=== PATIENT | female | born 1980 | race Caucasian/White ===

== ENCOUNTER 2016-06-15 11:08 | Outpatient (CLI) | payer MEDICAID ==
--- NOTE | 2016-06-16 11:12 | Mammography Report ---
BILATERAL DIGITAL SCREENING MAMMOGRAM with CAD: 06/15/16 11:08:00 CLINICAL: Baseline screening. FINDINGS: The breasts are heterogeneously dense, which may obscure small masses. An oval right upper outer circumscribed mass is probably a lymph node but needs additional imaging for confirmation.No architectural distortion or suspicious calcifications.The left breast is negative. IMPRESSION: Right lymph node versus mass requiring further workup. BI-RADS CATEGORY: 0 -- Additional Imaging Evaluation Required RECOMMENDATION: Recall for ultrasound of the upper outer right breast. ACR BI-RADS MAMMOGRAPHIC CODES: 0 = Needs additional imaging evaluation; 1 = Negative; 2 = Benign; 3 = Probably benign; 4 = Suspicious; 5 = Malignant; 6 = Known biopsy-proven malignancy COMMENT: 1. Dense breast tissue, i.e., adenosis, fibrocystic changes, etc., may obscure an underlying neoplasm. 2. Approximately 10% of cancers are not detected with mammography. 3. A negative mammography report should not delay biopsy if a clinically suspicious mass is present. COMMENT: Patient follow-up letters are generated via our [employer] application.
== END 2016-06-15 11:09 | disposition home or self-care (01) ==
LOC: SPVWC 11:08
PROVIDERS: ATTEND Hospitalist
DX: Z12.31 Encounter for screening mammogram for malignant neoplasm of breast (principal)
CPT/HCPCS: 77067; G0202

== ENCOUNTER 2016-06-30 12:58 | Outpatient (CLI) | payer MEDICAID ==
--- NOTE | 2016-06-30 13:44 | Ultrasound Report ---
RIGHT BREAST ULTRASOUND: 06/30/16 12:58:00 CLINICAL: Recall to evaluate an upper outer lymph node versus mass. COMPARISON: 06/15/16 screening mammogram. FINDINGS: Ultrasound of the upper outer right breast was performed and demonstrated a lymph node with central fat and benign morphology at 10:30 o'clock 7 cm from the nipple. It measures 6 x 7 x 5 mm and correlates with the mammographic density. No mass, cyst or shadowing. IMPRESSION: A 7 mm benign right upper outer intraparenchymal lymph node. BI-RADS 2 - - Benign RECOMMENDATION: Routine mammographic screening based on ACS guidelines.
== END 2016-06-30 12:59 | disposition home or self-care (01) ==
LOC: SPVWC 12:58
PROVIDERS: ATTEND Hospitalist
DX: R92.8 Other abnormal and inconclusive findings on diagnostic imaging of breast (principal)

== ENCOUNTER 2017-03-28 11:39 | Emergency (ER) | payer MEDICAID ==
--- NOTE | 2017-03-28 16:38 | Emergency Department Report ---
Blank Doc - Documentation Documentation: Patient is a 36-year-old female, sent by her primary care physician for evaluation for vaginal bleeding that started immediately after she took bland B 3 days ago. Patient stated that she has been passing clots. She denied any dizziness, chest pain and shortness of breath. No chest pain. She stated that she has lower abdominal pain since then. Patient will need further workup which includes CBC, CMP, hCG.
[2017-03-28 17:00] VITALS: BP 114/69
[2017-03-28 17:00] LABS: Basophils % (Auto) 0.7 % (0.0-1.8); Eosinophils # (Auto) 0.2 K/mm3 (0.0-0.4); Eosinophils % (Auto) 2.8 % (0.0-4.3); Hematocrit 39.9 % (30.3-42.9); Hemoglobin 13.5 gm/dl (10.1-14.3); Lymphocytes # (Auto) 1.8 K/mm3 (1.2-5.4); Lymphocytes % (Auto) 24.2 % (13.4-35.0); Mean Corpuscular HGB Conc 34 % (30-34); Mean Corpuscular Hemoglobin 30 pg (28-32); Mean Corpuscular Volume 89 fl (79-97); Monocytes # (Auto) 0.6 K/mm3 (0.0-0.8); Monocytes % (Auto) 7.9 % (0.0-7.3); Platelet Count 300 K/mm3 (140-440); Red Blood Count 4.47 M/mm3 (3.65-5.03)
[2017-03-28 17:05] LABS: Bacteria,Urine 1+ /HPF (Negative); Bilirubin,Urine NEG (Negative); Blood,Urine LG (Negative); Color,Urine Yellow (Yellow); Nitrite,Urine NEG (Negative); Protein,Urine <15 mg/dL mg/dL (Negative); Urobilinogen,Urine < 2.0 mg/dL (<2.0)
[2017-03-28 17:13] LABS: INR 0.95 (0.87-1.13); Partial Thromboplastin Time 25.2 Sec. (24.2-36.6)
[2017-03-28 17:20] LABS: Alanine Aminotransferase 19 units/L (7-56); Albumin 4.3 g/dL (3.9-5); BUN/Creatinine Ratio 14; Blood Urea Nitrogen 7 mg/dL (7-17); Calcium 8.7 mg/dL (8.4-10.2); Hemolysis Index 14
--- NOTE | 2017-03-28 17:47 | Emergency Department Report ---
ED Female HPI - General Chief complaint: Abdominal Pain Stated complaint: VAG BLEED Time Seen by Provider: 03/28/17 16:12 Source: patient Mode of arrival: Ambulatory Limitations: No Limitations - History of Present Illness Initial comments: 36-year-old female comes in being sent by her primary care for evaluation of vaginal bleeding that started immediately after she took plan B3 days ago. Patient reports that she's been passing lots of clots. She reports that she is going through 7 pads a day. She denies any dizziness shortness of breath chest pain. She does admit to lower abdominal pain since then. Patient has no other concerns. MD Complaint: vaginal bleeding Severity scale (0 -10): 7 Quality: burning Are you Now?: No Associated Symptoms: vaginal bleeding, other (pelvic pain) - Related Data Previous Rx's Medication Instructions Recorded Last Taken Type Acetaminophen/Codeine [Tylenol #3] 1 tab PO Q6H PRN #21 tab 03/21/15 Unknown Rx methOCARBAMOL [Robaxin TAB] 500 mg PO BID #20 tab 03/21/15 Unknown Rx Ibuprofen 800 mg PO TID #15 tablet 03/28/17 Unknown Rx Allergies Allergy/AdvReac Type Severity Reaction Status Date / Time No Known Allergies Allergy Unverified 03/28/17 12:00 ED Review of Systems ROS: Stated complaint: VAG BLEED Other details as noted in HPI Constitutional: denies: chills, fever Eyes: denies: eye pain, eye discharge, vision change ENT: denies: ear pain, throat pain Respiratory: denies: cough, shortness of breath, wheezing Cardiovascular: denies: chest pain, palpitations Endocrine: no symptoms reported Gastrointestinal: denies: abdominal pain, nausea, diarrhea Genitourinary: denies: urgency, dysuria, discharge Musculoskeletal: denies: back pain, joint swelling, arthralgia Skin: denies: rash, lesions Neurological: denies: headache, weakness, paresthesias Psychiatric: denies: anxiety, depression Hematological/Lymphatic: denies: easy bleeding, easy bruising ED Past Medical Hx - Past Medical History Previous Medical History?: Yes Hx Asthma: Yes - Surgical History Past Surgical History?: Yes Additional Surgical History: SINUS SURGERY. TUBES IN EARS. Tubal ligation - Social History Smoking Status: Never Smoker Substance Use Type: None - Medications Home Medications: Home Medications Medication Instructions Recorded Confirmed Last Taken Type Acetaminophen/Codeine [Tylenol #3] 1 tab PO Q6H PRN #21 tab 03/21/15 Unknown Rx methOCARBAMOL [Robaxin TAB] 500 mg PO BID #20 tab 03/21/15 Unknown Rx Ibuprofen 800 mg PO TID #15 tablet 03/28/17 Unknown Rx ED Physical Exam - General Limitations: No Limitations General appearance: alert, in no apparent distress - Head Head exam: Present: atraumatic, normocephalic - Eye Eye exam: Present: normal appearance - Respiratory Respiratory exam: Present: normal lung sounds bilaterally. Absent: respiratory distress - Cardiovascular Cardiovascular Exam: Present: regular rate, normal rhythm. Absent: systolic murmur, diastolic murmur, rubs, gallop - GI/Abdominal GI/Abdominal exam: Present: soft, tenderness - Extremities Exam Extremities exam: Present: normal inspection - Neurological Exam Neurological exam: Present: alert, oriented X3 - Psychiatric Psychiatric exam: Present: normal affect, normal mood - Skin Skin exam: Present: warm, dry, intact, normal color. Absent: rash ED Course Vital Signs 03/28/17 03/28/17 11:50 16:59 Temperature 98.3 F 97.6 F Pulse Rate 78 85 Respiratory 16 16 Rate Blood Pressure 112/84 Blood Pressure 114/69 [Left] O2 Sat by Pulse 100 100 Oximetry ED Medical Decision Making - Lab Data Result diagrams: 03/28/17 16:46 03/28/17 16:46 - Medical Decision Making Patient has been evaluated by this provider fast track. CBC CMP and hCG was within normal limits. Discussed with patient that we'll give her ibuprofen for pain and discharge her home on ibuprofen. She can follow up with primary care provider in the next 3-5 days. Patient verbalized understanding Critical care attestation.: If time is entered above; I have spent that time in minutes in the direct care of this critically ill patient, excluding procedure time. ED Disposition Clinical Impression: Vaginal bleeding Disposition: DC-01 TO HOME OR SELFCARE Is pt being admited?: No Does the pt Need Aspirin: No Condition: Stable Instructions: Abdominal Pain (ED) Additional Instructions: Ibuprofen as prescribed when necessary. Follow-up with her primary care provider in 3-5 days. Prescriptions: Ibuprofen 800 mg PO TID #15 tablet Referrals: PRIMARY CARE, [Primary Care Provider] - 3-5 Days Forms: Work/School Release Form(ED), Accompanied Note
== END 2017-03-28 18:06 | disposition home or self-care (01) ==
LOC: ED 11:39
DX: N93.8 Other specified abnormal uterine and vaginal bleeding (principal); J45.909 Unspecified asthma, uncomplicated
CPT/HCPCS: 36415; 80053; 81001; 84702; 85025; 85610; 85730; 99283

== ENCOUNTER 2017-04-28 07:15 | Outpatient (CLI) | payer MEDICAID ==
--- NOTE | 2017-04-28 08:44 | Fluoroscopy Report ---
HYSTEROSALPINGOGRAM: History: Tubal ligation reversal. 10 fluoroscopic images were captured. Informed consent was obtained. Standard sterile prep and drape was employed. The catheter tip was subsequently placed within the uterine lumen via cervix. The small balloon on the tip of the catheter was inflated. Retrograde injection opacifies normal appearing uterine lumen. The fallopian tubules could not be opacified throughout this examination and were not visualized. IMPRESSION: Normal endometrial cavity. The bilateral fallopian tubules are not identified consistent with occlusion.
--- NOTE | 2017-04-28 15:33 | Ultrasound Report ---
FINAL REPORT EXAM: US PELVIC COMPLETE HISTORY: PELVIC PAIN TECHNIQUE: Pelvic ultrasound. Transabdominal study read in conjunction with transvaginal exam performed concurrently. PRIORS: None. FINDINGS: The uterus measures 10.2 x 4.0 x 5.8 cm. There is no focal uterine mass seen. Endometrial thickness is up to 12 mm. Right ovary measures 2.2 x 1.6 x 2.8 cm. The left measures 2.1 x 1.4 x 2.9 cm. There is no abnormal adnexal mass seen. There is no pelvic free fluid. IMPRESSION: Mildly prominent endometrium measuring 12 mm thickness in the fundus. No other significant finding.
--- NOTE | 2017-04-28 15:34 | Ultrasound Report ---
FINAL REPORT EXAM: US TRANSVAGINAL HISTORY: PELVIC PAIN/TUBAL REVERSAL TECHNIQUE: Pelvic ultrasound. Transvaginal study read in conjunction with abdominal exam. PRIORS: None. FINDINGS: The uterus measures 10.2 x 4.0 x 5.8 cm. There is no focal uterine mass seen. Endometrial thickness is up to 12 mm. Right ovary measures 2.2 x 1.6 x 2.8 cm. The left measures 2.1 x 1.4 x 2.9 cm. There is no abnormal adnexal mass seen. There is blood flow to both ovaries. There is no pelvic free fluid. IMPRESSION: Mildly prominent endometrium measuring 12 mm thickness in the fundus. No other significant finding.
== END 2017-04-28 07:16 | disposition home or self-care (01) ==
LOC: FLUORO 07:15
PROVIDERS: ATTEND Obstetrics & Gynecology
DX: R10.2 Pelvic and perineal pain (principal); Z31.42 Aftercare following sterilization reversal
CPT/HCPCS: 58340; 74740; 76830; 76856; Q9967

== ENCOUNTER 2018-02-22 09:55 | Emergency (ER) | payer MEDICAID ==
[2018-02-22 10:03] VITALS: BP 118/62
[2018-02-22 10:26] LABS: Hematocrit 39.5 % (30.3-42.9); Hemoglobin 13.5 gm/dl (10.1-14.3); Mean Corpuscular HGB Conc 34 % (30-34); Mean Corpuscular Volume 92 fl (79-97); Platelet Count 301 K/mm3 (140-440); Red Blood Count 4.31 M/mm3 (3.65-5.03); Red Cell Distribution Width 13.9 % (13.2-15.2)
[2018-02-22 11:17] LABS: Basophils % (Auto) 0.4 % (0.0-1.8); Eosinophils # (Auto) 0.2 K/mm3 (0.0-0.4); Eosinophils % (Auto) 1.6 % (0.0-4.3); Hematocrit 39.7 % (30.3-42.9); Hemoglobin 13.6 gm/dl (10.1-14.3); Lymphocytes % (Auto) 20.3 % (13.4-35.0); Mean Corpuscular HGB Conc 34 % (30-34); Mean Corpuscular Volume 91 fl (79-97); Monocytes # (Auto) 0.7 K/mm3 (0.0-0.8); Monocytes % (Auto) 6.9 % (0.0-7.3); Platelet Count 331 K/mm3 (140-440); Red Blood Count 4.36 M/mm3 (3.65-5.03); Red Cell Distribution Width 13.8 % (13.2-15.2)
[2018-02-22 11:22] LABS: Bacteria,Urine 1+ /HPF (Negative); Bilirubin,Urine NEG (Negative); Blood,Urine LG (Negative); Color,Urine Yellow (Yellow); Mucus,Urine 1+ /HPF; Urobilinogen,Urine < 2.0 mg/dL (<2.0)
[2018-02-22 11:22] LABS: Alanine Aminotransferase 7 units/L (7-56); Albumin 4.2 g/dL (3.9-5); BUN/Creatinine Ratio 15; Blood Urea Nitrogen 6 mg/dL (7-17); Calcium 9.1 mg/dL (8.4-10.2); Hemolysis Index 14
[2018-02-22 11:23] LABS: Bilirubin,Direct < 0.2 mg/dL (0-0.2)
--- NOTE | 2018-02-22 12:28 | Emergency Department Report ---
ED General Adult HPI - General Chief complaint: Vaginal Bleeding Stated complaint: PREG 11WKS/BLEEDING Time Seen by Provider: 02/22/18 10:14 Source: patient Mode of arrival: Ambulatory Limitations: No Limitations - History of Present Illness Initial comments: Patient is a female who presents to emergency department with vaginal bleeding. Patient states she is approximately 11 weeks and yesterday began to have a significant amount of vaginal bleeding. Patient denies any abdominal pain or contractions. Patient denies trauma or strenuous activity. Patient states she's had some spotting during this but not lázaro bleeding. -: Sudden Radiation: non-radiation Severity scale (0 -10): 0 Consistency: constant Improves with: none Worsens with: none Associated Symptoms: denies other symptoms - Related Data Previous Rx's Medication Instructions Recorded Last Taken Type Cephalexin [Keflex] 500 mg PO QID #20 capsule 02/22/18 Unknown Rx Allergies Allergy/AdvReac Type Severity Reaction Status Date / Time No Known Allergies Allergy Verified 12/26/17 11:49 ED Review of Systems ROS: Stated complaint: PREG 11WKS/BLEEDING Other details as noted in HPI Comment: All other systems reviewed and negative Constitutional: denies: chills, fever Eyes: denies: eye pain, eye discharge, vision change ENT: denies: ear pain, throat pain Respiratory: denies: cough, shortness of breath, wheezing Cardiovascular: denies: chest pain, palpitations Endocrine: no symptoms reported Gastrointestinal: denies: abdominal pain, nausea, diarrhea Genitourinary: other (vaginal bleeding). denies: urgency, dysuria, discharge Musculoskeletal: denies: back pain, joint swelling, arthralgia Skin: denies: rash, lesions Neurological: denies: headache, weakness, paresthesias Psychiatric: denies: anxiety, depression Hematological/Lymphatic: denies: easy bleeding, easy bruising ED Past Medical Hx - Past Medical History Hx Hypertension: No Hx Asthma: Yes (SEASONAL - NO MEDS) Hx HIV: No - Surgical History Past Surgical History?: Yes Additional Surgical History: SINUS SURGERY. TUBES IN EARS. Tubal ligation - Social History Smoking Status: Never Smoker Substance Use Type: None - Medications Home Medications: Home Medications Medication Instructions Recorded Confirmed Last Taken Type Cephalexin [Keflex] 500 mg PO QID #20 capsule 02/22/18 Unknown Rx ED Physical Exam - General Limitations: No Limitations General appearance: alert, in no apparent distress - Head Head exam: Present: atraumatic, normocephalic - Eye Eye exam: Present: normal appearance, PERRL, EOMI - ENT ENT exam: Present: mucous membranes moist - Neck Neck exam: Present: normal inspection - Respiratory Respiratory exam: Present: normal lung sounds bilaterally. Absent: respiratory distress, wheezes, rales - Cardiovascular Cardiovascular Exam: Present: regular rate, normal rhythm. Absent: systolic mu rmur, diastolic murmur, rubs, gallop - GI/Abdominal GI/Abdominal exam: Present: soft, normal bowel sounds. Absent: distended, tenderness - Rectal Rectal exam: Present: deferred - External exam: Present: other (patient deferred) Speculum exam: Present: other (patient deferred) Bi-manual exam: Present: other (patient deferred) - Extremities Exam Extremities exam: Present: normal inspection - Back Exam Back exam: Present: normal inspection - Neurological Exam Neurological exam: Present: alert, oriented X3 - Psychiatric Psychiatric exam: Present: normal affect, normal mood - Skin Skin exam: Present: warm, dry, intact, normal color. Absent: rash ED Course Vital Signs 02/22/18 02/22/18 10:00 10:26 Temperature 98.1 F Pulse Rate 80 Respiratory 16 15 Rate Blood Pressure 118/62 O2 Sat by Pulse 100 Oximetry ED Medical Decision Making - Lab Data Result diagrams: 02/22/18 10:29 02/22/18 10:29 Lab Results 02/22/18 02/22/18 02/22/18 Range/Units 10:09 10:09 10:09 WBC 9.3 (4.5-11.0) K/mm3 RBC 4.31 (3.65-5.03) M/mm3 Hgb 13.5 (10.1-14.3) gm/dl Hct 39.5 (30.3-42.9) % MCV 92 (79-97) fl MCH 31 (28-32) pg MCHC 34 (30-34) % RDW 13.9 (13.2-15.2) % Plt Count 301 (140-440) K/mm3 Lymph % (Auto) (13.4-35.0) % [place] % (Auto) (0.0-7.3) % Eos % (Auto) (0.0-4.3) % Baso % (Auto) (0.0-1.8) % Lymph # (1.2-5.4) K/mm3 [place] # (0.0-0.8) K/mm3 Eos # (0.0-0.4) K/mm3 Baso # (0.0-0.1) K/mm3 Seg Neutrophils % (40.0-70.0) % Seg Neutrophils # (1.8-7.7) K/mm3 Sodium (137-145) mmol/L Potassium (3.6-5.0) mmol/L Chloride (98-107) mmol/L Carbon Dioxide (22-30) mmol/L Anion Gap mmol/L BUN (7-17) mg/dL Creatinine (0.7-1.2) mg/dL Estimated GFR ml/min BUN/Creatinine Ratio % Glucose (65-100) mg/dL Calcium (8.4-10.2) mg/dL Total Bilirubin (0.1-1.2) mg/dL Direct Bilirubin (0-0.2) mg/dL AST (5-40) units/L ALT (7-56) units/L Alkaline Phosphatase (35-129) units/L Total Protein (6.3-8.2) g/dL Albumin (3.9-5) g/dL Albumin/Globulin Ratio % HCG, Quant 11863 H (0-4) mIU/mL Urine Color (Yellow) Urine Turbidity (Clear) Urine pH (5.0-7.0) Ur Specific [place] (1.003-1.030) Urine Protein (Negative) mg/dL Urine Glucose (UA) (Negative) mg/dL Urine Ketones (Negative) mg/dL Urine Blood (Negative) Urine Nitrite (Negative) Urine Bilirubin (Negative) Urine Urobilinogen (<2.0) mg/dL Ur Leukocyte Esterase (Negative) Urine WBC (Auto) (0.0-6.0) /HPF Urine RBC (Auto) (0.0-6.0) /HPF U Epithel Cells (Auto) (0-13.0) /HPF Urine Bacteria (Auto) (Negative) /HPF Urine Mucus /HPF Blood Type O POSITIVE 02/22/18 02/22/18 02/22/18 Range/Units 10:29 10:29 10:56 WBC 9.9 (4.5-11.0) K/mm3 RBC 4.36 (3.65-5.03) M/mm3 Hgb 13.6 (10.1-14.3) gm/dl Hct 39.7 (30.3-42.9) % MCV 91 (79-97) fl MCH 31 (28-32) pg MCHC 34 (30-34) % RDW 13.8 (13.2-15.2) % Plt Count 331 (140-440) K/mm3 Lymph % (Auto) 20.3 (13.4-35.0) % [place] % (Auto) 6.9 (0.0-7.3) % Eos % (Auto) 1.6 (0.0-4.3) % Baso % (Auto) 0.4 (0.0-1.8) % Lymph # 2.0 (1.2-5.4) K/mm3 [place] # 0.7 (0.0-0.8) K/mm3 Eos # 0.2 (0.0-0.4) K/mm3 Baso # 0.0 (0.0-0.1) K/mm3 Seg Neutrophils % 70.8 H (40.0-70.0) % Seg Neutrophils # 7.0 (1.8-7.7) K/mm3 Sodium 137 (137-145) mmol/L Potassium 4.3 (3.6-5.0) mmol/L Chloride 100.3 (98-107) mmol/L Carbon Dioxide 24 (22-30) mmol/L Anion Gap 17 mmol/L BUN 6 L (7-17) mg/dL Creatinine 0.4 L (0.7-1.2) mg/dL Estimated GFR > 60 ml/min BUN/Creatinine Ratio 15 % Glucose 80 (65-100) mg/dL Calcium 9.1 (8.4-10.2) mg/dL Total Bilirubin 0.30 (0.1-1.2) mg/dL Direct Bilirubin < 0.2 (0-0.2) mg/dL AST 11 (5-40) units/L ALT 7 (7-56) units/L Alkaline Phosphatase 54 (35-129) units/L Total Protein 6.4 (6.3-8.2) g/dL Albumin 4.2 (3.9-5) g/dL Albumin/Globulin Ratio 1.9 % HCG, Quant (0-4) mIU/mL Urine Color Yellow (Yellow) Urine Turbidity Slightly-cloudy (Clear) Urine pH 6.0 (5.0-7.0) Ur Specific [place] 1.018 (1.003-1.030) Urine Protein 30 mg/dl (Negative) mg/dL Urine Glucose (UA) Neg (Negative) mg/dL Urine Ketones Neg (Negative) mg/dL Urine Blood Lg (Negative) Urine Nitrite Pos (Negative) Urine Bilirubin Neg (Negative) Urine Urobilinogen < 2.0 (<2.0) mg/dL Ur Leukocyte Esterase Sm (Negative) Urine WBC (Auto) 50.0 H (0.0-6.0) /HPF Urine RBC (Auto) 173.0 (0.0-6.0) /HPF U Epithel Cells (Auto) 13.0 (0-13.0) /HPF Urine Bacteria (Auto) 1+ (Negative) /HPF Urine Mucus 1+ /HPF Blood Type - Radiology Data Referring Physician: BRI WHITE Patient Name: ALAINA RAMIRES Date of : 1980 Sex: Female Report Date: 2018-02-22 Report Status: [place] [address] Ultrasound Report Signed Patient: ALAINA TRAN MR#: [id number] : 1980 Acct:[id number] Age/Sex: 37 / F ADM Date: 02/22/18 Loc: ED Attending Dr: Ordering Physician: BRI WHITE MD Date of Service: 02/22/18 Procedure(s): US OB <= 14 weeks fetus Accession Number(s): [id number] cc: BRI WHITE MD FINAL REPORT EXAM: US OB lt; = 14 WEEKS FETUS HISTORY: vaginal bleeding TECHNIQUE: Grayscale and color doppler ultrasound imaging of the pelvis was performed transabdominally and transvaginally. PRIORS: Pelvic ultrasound from 04/28/2017. FINDINGS: Uterus: The uterus is homogeneous in echogenicity without focal mass. The uterus measures 12.5 x 8.7 x 9.7 centimeters. An intrauterine gestational sac, yolk sac and embryonic pole were seen. There is a moderate subchorionic hemorrhage measuring 3.0 x 2.8 x 0.7 centimeters. Embryonic cardiac activity was detected at 165 beats per minute. [place]-rump length is 5.6 centimeters. Femur length is 0.9 centimeters. BPD is 1.8 centimeters. Combined estimated gestational age is 12 weeks and 4 days with an VARGAS of 09/02/2018. Ovaries: The ovaries were not seen. Free fluid: None. IMPRESSION: Live intrauterine measuring at 12 weeks and 4 days gestational age with an VARGAS of 09/02/2018. Moderate subchorionic hemorrhage. Transcribed By: MG Dictated By: YOHAN MONTESINOS MD Electronically Authenticated By: YOHAN MONTESINOS MD Signed Date/Time: 02/22/18 1340 DD/ 1343 TD/TT: 02/22/18 1343 - Medical Decision Making Discussed results with patient and the need to continue with her pre-existing appointment with Dr. Escobar in the morning Critical care attestation.: If time is entered above; I have spent that time in minutes in the direct care of this critically ill patient, excluding procedure time. ED Disposition Clinical Impression: Subchorionic hemorrhage, Threatened miscarriage, UTI (urinary tract infection) Disposition: - TO HOME OR SELFCARE Is pt being admited?: No Does the pt Need Aspirin: No Condition: Stable Instructions: Threatened Miscarriage (ED), (ED), Urinary Tract Infection in Women (ED) Additional Instructions: Please keep your appointment with Dr. Escobar in the a.m. Prescriptions: Cephalexin [Keflex] 500 mg PO QID #20 capsule Referrals: PRIMARY CARE, [Primary Care Provider] - 3-5 Days [facility] [Provider Group] - 3-5 Days Time of Disposition: 13:47
--- NOTE | 2018-02-22 13:40 | Ultrasound Report ---
FINAL REPORT EXAM: US OB <= 14 WEEKS FETUS HISTORY: vaginal bleeding TECHNIQUE: Grayscale and color doppler ultrasound imaging of the pelvis was performed transabdomina lly and transvaginally. PRIORS: Pelvic ultrasound from 04/28/2017. FINDINGS: Uterus: The uterus is homogeneous in echogenicity without focal mass. The uterus measures 12.5 x 8.7 x 9.7 centimeters. An intrauterine gestational sac, yolk sac and embryonic pole were seen. There is a moderate subchorionic hemorrhage measuring 3.0 x 2.8 x 0.7 centimeters. Embryonic cardiac activity w as detected at 165 beats per minute. [place]-rump length is 5.6 centimeters. Femur length is 0.9 centim eters. BPD is 1.8 centimeters. Combined estimated gestational age is 12 weeks and 4 days with an VARGAS of 09/02/2018. Ovaries: The ovaries were not seen. Free fluid: None. IMPRESSION: Live intrauterine measuring at 12 weeks and 4 days gestational age with an VARGAS of 9. Moderate subchorionic hemorrhage.
--- NOTE | 2018-02-22 13:41 | Ultrasound Report ---
FINAL REPORT EXAM: US OB TRANSVAGINAL HISTORY: vaginal bleeding TECHNIQUE: Grayscale and color doppler ultrasound imaging of the pelvis was performed transabdominal ly and transvaginally. PRIORS: Pelvic ultrasound from 04/28/2017. FINDINGS: Uterus: The uterus is homogeneous in echogenicity without focal mass. The uterus measures 12.5 x 8.7 x 9.7 centimeters. An intrauterine gestational sac, yolk sac and embryonic pole were seen. There is a moderate subchorionic hemorrhage measuring 3.0 x 2.8 x 0.7 centimeters. Embryonic cardiac activity w as detected at 165 beats per minute. [place]-rump length is 5.6 centimeters. Femur length is 0.9 centim eters. BPD is 1.8 centimeters. Combined estimated gestational age is 12 weeks and 4 days with an VARGAS of 09/02/2018. Ovaries: The ovaries were not seen. Free fluid: None. IMPRESSION: Live intrauterine measuring at 12 weeks and 4 days gestational age with an VARGAS of 9. Moderate subchorionic hemorrhage.
== END 2018-02-22 14:00 | disposition home or self-care (01) ==
LOC: ED 09:55
DX: O20.0 Threatened abortion (principal); O23.41 Unspecified infection of urinary tract in pregnancy, first trimester; O20.8 Other hemorrhage in early pregnancy; J45.909 Unspecified asthma, uncomplicated; Z3A.11 11 weeks gestation of pregnancy; Z98.51 Tubal ligation status
CPT/HCPCS: 36415; 76801; 76817; 80048; 80076; 81001; 84702; 85025; 85027; 86900; 86901; 99284

== ENCOUNTER 2018-07-07 09:54 | Outpatient (CLI) | payer MEDICAID ==
[2018-07-07] MEDS ORDERED: CELESTONE SOLUSPAN IM SCH (11:00)
== END 2018-07-07 11:05 | disposition home or self-care (01) ==
LOC: TRG 09:54
PROVIDERS: ATTEND Obstetrics & Gynecology
DX: O47.03 False labor before 37 completed weeks of gestation, third trimester (principal); O09.523 Supervision of elderly multigravida, third trimester; Z3A.31 31 weeks gestation of pregnancy
CPT/HCPCS: 96372; J0702

== ENCOUNTER 2018-07-08 09:50 | Outpatient (CLI) | payer MEDICAID ==
[2018-07-08] MEDS ORDERED: CELESTONE SOLUSPAN IM STA (09:54)
== END 2018-07-08 10:08 | disposition home or self-care (01) ==
LOC: TRG 09:50
PROVIDERS: ATTEND Obstetrics & Gynecology
DX: O47.03 False labor before 37 completed weeks of gestation, third trimester (principal); O09.523 Supervision of elderly multigravida, third trimester; Z3A.31 31 weeks gestation of pregnancy
CPT/HCPCS: 96372; J0702

== ENCOUNTER 2018-09-03 03:30 | Outpatient (CLI) | payer MEDICAID ==
[2018-09-03 03:40] VITALS: BP 124/81
[2018-09-03] MEDS ORDERED: LACTATED RINGERS 1,000 ML ONE (04:13)
[2018-09-03] MEDS ORDERED: LACTATED RINGERS 1,000 ML IV ONE (04:16)
[2018-09-03] MEDS ORDERED: VISTARIL PO ONE (05:37)
== END 2018-09-03 05:50 | disposition home or self-care (01) ==
LOC: TRG 03:30
PROVIDERS: ATTEND Obstetrics & Gynecology
DX: O62.9 Abnormality of forces of labor, unspecified (principal); O99.513 Diseases of the respiratory system complicating pregnancy, third trimester; J45.909 Unspecified asthma, uncomplicated; Z3A.39 39 weeks gestation of pregnancy
CPT/HCPCS: 59025; 96360; J7120; Q0177

== ENCOUNTER 2018-09-04 20:29 | Inpatient (IN) | payer MEDICAID ==
[2018-09-04] MEDS ORDERED: XYLOCAINE 2% INFILTRATI ONE (21:55)
[2018-09-04] MEDS ORDERED: SUBLIMAZE IV PRN (21:55)
[2018-09-04] MEDS ORDERED: BRETHINE SUB-Q PRN (21:55)
[2018-09-04] MEDS ORDERED: MINERAL OIL PO PRN (21:55)
[2018-09-04] MEDS ORDERED: BRETHINE IVP PRN (21:55)
[2018-09-04] MEDS ORDERED: PITOCin/NS 20 UNIT/1000ML DRIP 20 UNITS/1,000 ML BAG IV SCH (22:00)
[2018-09-04] MEDS ORDERED: PITOCin/NS 30 UNIT/500ML 30 UNITS/500 ML BAG IV SCH ×2 (22:00)
[2018-09-04] MEDS ORDERED: AMPICILLIN/NS 2 GM/100 ML 2 GM/100 ML BAG IV ONE (22:26)
[2018-09-05 00:26] LABS: Hematocrit 32.6 % (30.3-42.9); Hemoglobin 11.2 gm/dl (10.1-14.3); Mean Corpuscular HGB Conc 34 % (30-34); Mean Corpuscular Volume 93 fl (79-97); Platelet Count 312 K/mm3 (140-440); Red Blood Count 3.51 M/mm3 (3.65-5.03)
[2018-09-05] MEDS: STADOL IV PRN ×2 (01:18→09:58)
[2018-09-05] MEDS: LACTATED RINGERS 1,000 ML IV SCH ×4 (01:18→17:35)
[2018-09-05] MEDS ORDERED: AMPICILLIN/NS 1 GM/50 ML 1 GM/50 ML BAG IV SCH (02:30)
--- NOTE | 2018-09-05 08:38 | History and Physical Report ---
History of Present Illness Date of examination: 09/05/18 Date of admission: 09/04/18 23:15 Chief complaint: contractions, scheduled for induction History of present illness: Pt is a 38 year old female VARGAS 09/08/18 at 39w4d presents with regular painful contractions. She also reports some leakage of fluid since 2300 PM on 09/04/18. She reports good movement. She has had care at [facility] since 7 wks complicated by advanced maternal age, LGA fetus, after tubal reversal, polyhydramnios with AQUILES 30, H/o LEEP, s/p betamethasone 07/07 and 07/08, asthma, pyelectasis and UTI s/p treatment with Keflex. She is GBS Negative. 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 (Essure, tubal reversal, LEEP ), ot her (Ear surgery ) BUTTER FAT TESTER History: abnormal PAP smear Family/Genetic History: cancer Social history: no significant social history, - Obstetrical History Expected Date of Delivery: 09/08/18 Actual Gestation: 39 Week(s) 4 Day(s) : 5 Para: 4 Hx # Term Pregnancies: 4 Number of Pregnancies: 0 Spontaneous Abortions: 0 Induced : 0 Number of Living Children: 4 Medications and Allergies Allergies Allergy/AdvReac Type Severity Reaction Status Date / Time No Known Allergies Allergy Verified 12/26/17 11:49 Home Medications Medication Instructions Recorded Confirmed Last Taken Type Cephalexin [Keflex] 500 mg PO QID #20 capsule 02/22/18 Unknown Rx Active Meds: Active Medications Butorphanol Tartrate (Stadol) 2 mg IV Q2H PRN PRN Reason: Pain , Severe (7-10) Last Admin: 09/05/18 01:18 Dose: 2 mg Documented by: Ephedrine Sulfate (Ephedrine Sulfate) 10 mg IV Q2M PRN PRN Reason: Hypotension Fentanyl (Sublimaze) 100 mcg IV Q2H PRN PRN Reason: Labor Pain Oxytocin/Sodium Chloride (Pitocin/Ns 20 Unit/1000ml Drip) 20 units in 1,000 mls @ 125 mls/hr IV DIRECT ARTHUR Oxytocin/Sodium Chloride (Pitocin/Ns 30 Unit/500ml) 30 units in 500 mls @ 1 mls/hr IV TITR ARTHUR; Protocol Last Titration: 09/05/18 02:00 Dose: 4 milliunits/min, 4 mls/hr Documented by: Oxytocin/Sodium Chloride (Pitocin/Ns 30 Unit/500ml) 30 units in 500 mls @ 1 ml s/hr IV TITR ARTHUR; Protocol Lactated Ringer's (Lactated Ringers) 1,000 mls @ 125 mls/hr IV DIRECT ARTHUR Last Admin: 09/05/18 01:18 Dose: 125 mls/hr Documented by: Ampicillin Sodium (Ampicillin/Ns 1 Gm/50 Ml) 1 gm in 50 mls @ 100 mls/hr IV Q4HR ARTHUR Last Admin: 09/05/18 06:04 Dose: 100 mls/hr Documented by: Mineral Oil (Mineral Oil) 30 ml PO QHS PRN PRN Reason: Constipation Ondansetron HCl (Zofran) 4 mg IV Q8H PRN PRN Reason: Nausea And Vomiting Terbutaline Sulfate (Brethine) 0.25 mg SUB-Q ONCE PRN PRN Reason: Hyperstimulation/Hypertonicity Terbutaline Sulfate (Brethine) 0.25 mg IVP ONCE PRN PRN Reason: Hyperstimulation/Hypertonicity Review of Systems All systems: negative - Vital Signs Vital signs: Vital Signs Pulse BP 113 H 124/88 09/04/18 20:35 09/04/18 20:35 Temp Pulse Resp BP Pulse Ox 77 18 131/79 99 09/05/18 08:17 09/05/18 01:18 09/05/18 08:17 09/05/18 08:04 - Physical Exam Breasts: Positive: deferred Cardiovascular: Regular rate Lungs: Positive: Clear to auscultation Abdomen: Positive: soft (gravid ) Genitourinary (Female): Positive: normal external genitalia Uterus: Positive: enlarged (gravid ) Extremities: Positive: normal - Obstetrical FHR: auscultation normal Cervical Dilatation: 1 Cervical Effacement Percentage: 100 station: -4 Uterine Contraction Pattern: Irregular Uterine Tone Measurement Phase: Resting Uterine Contraction Intensity: Strong/Firm Results Result Diagrams: 09/04/18 23:21 Abnormal lab results 09/04/18 Range/Units 23:21 RBC 3.51 L (3.65-5.03) M/mm3 RDW 22.0 H (13.2-15.2) % All other labs normal. Assessment and Plan A: IUP at 39w4d PROM Polyhydramnios Advanced Maternal Age Asthma Obesity Pyelectasis GBS Negative P: Admit to labor and delivery Continue pitocin augmentation Closely monitor clinical status
[2018-09-05] MEDS ORDERED: ZOFRAN IV PRN ×2 (09:00→22:05)
--- NOTE | 2018-09-05 13:15 | Ultrasound Report ---
US OB limited INDICATION / CLINICAL INFORMATION: Presentation, labor. COMPARISON: None available. FINDINGS: Clinical dates are 39 weeks 4 days. There is a single intrauterine in a cephalic presentati on. The heart rate is 115 bpm. Signer Name: Wallace Flores MD Signed: 09/05/2018 1:11 PM Workstation Name: [id number]
--- NOTE | 2018-09-05 13:48 | Event Note ---
Date: 09/05/18 AROM- meconium stained fluid. Cat II tracing. Continue current management.
[2018-09-05] MEDS ORDERED: MARCAINE 0.25% INFILTRATI ONE ×2 (14:48→20:28)
[2018-09-05] MEDS ORDERED: NARCAN 2 MG/2 ML IV PRN (15:16)
--- NOTE | 2018-09-05 15:16 | Anesthesia Consultation ---
Anesthesia Consult and Med Hx Date of service: 09/05/18 - Airway Anesthetic Teeth Evaluation: Good ROM Head & Neck: Adequate Mental/Hyoid Distance: Adequate Mallampati Class: Class II Intubation Access Assessment: Good - Pulmonary Exam CTA: Yes - Cardiac Exam Cardiac Exam: RRR - Pre-Operative Health Status ASA Pre-Surgery Classification: ASA2, Emergency Proposed Anesthetic Plan: Epidural - Pulmonary Hx Smoking: No Hx Asthma: Yes COPD: No Hx Pneumonia: No Hx Sleep Apnea: No (JOANNA PRE SCREEN NEGATIVE) - Cardiovascular System Hx Hypertension: No - Central Nervous System Hx Seizures: No Hx Psychiatric Problems: No - Endocrine Hx Renal Disease: No Hx End Stage Renal Disease: No Hx Hypothyroidism: No Hx Hyperthyroidism: No - Hematic Hx Anemia: No Hx Sickle Cell Disease: No - Other Systems Hx Alcohol Use: No Hx Cancer: No
[2018-09-05] MEDS ORDERED: fentaNYL-BUPIV 2 MCG/ML-0.125% 200 MCG/100 ML BAG EPIDURAL SCH (16:00)
[2018-09-05] MEDS ORDERED: NACL 0.9% 500 ML 500 ML ONE ×2 (18:19→19:32)
--- NOTE | 2018-09-05 18:42 | Event Note ---
Date: 09/05/18 Pt more comfortable with epidural. Category II tracing. SVE: 6.5/90/-3. IUPC and FSE placed. Amnioinfusion started. FHTs with repetitive variable decels to 70s with each contraction initially. If no improvement, plan to proceed with delivery.
--- NOTE | 2018-09-05 20:13 | Event Note ---
Date: 09/05/18 Pt comfortable. Category I tracing. Cervix remains 6.5 cm. Restart pitocin. If cervix remains unchanged, or there is distress plan to proceed with primary section.
--- NOTE | 2018-09-05 21:10 | Anesthesia Day of Surgery ---
Anesthesia Day of Surgery - Day of Surgery Patient Examined: Yes Patient H&P Reviewed: Yes Patient is NPO: Yes
[2018-09-05] MEDS ORDERED: BICITRA PO ONE (21:14)
[2018-09-05] MEDS ORDERED: PEPCID IV ONE (21:14)
[2018-09-05] MEDS ORDERED: MARCAINE 0.5% INFILTRATI ONE (21:14)
[2018-09-05] MEDS ORDERED: REGLAN IV ONE (21:14)
[2018-09-05] MEDS ORDERED: PHENYLEPHRINE/NS Syringe 1,000 MCG/10 ML IV ONE (21:44)
[2018-09-05] MEDS ORDERED: ZOFRAN ONE (21:49)
[2018-09-05] MEDS ORDERED: WATER FOR IRRIG STERILE IR ONE (21:58)
[2018-09-05] MEDS ORDERED: NACL 0.9% IR ONE (21:58)
[2018-09-05] MEDS ORDERED: DIPRIVAN 10 MG/ML IV ONE (21:59)
[2018-09-05] MEDS ORDERED: LACTATED RINGERS 1,000 ML IV SCH (22:00)
[2018-09-05] MEDS ORDERED: PITOCin/NS 20 UNIT/1000ML DRIP 20 UNITS/1,000 ML BAG IV SCH (22:00)
[2018-09-05] MEDS ORDERED: ANCEF/STERILE WATER 2 GM/20 ML 2 GM/20 ML SYRINGE IV NR (22:00)
[2018-09-05] MEDS ORDERED: MORPHINE IV PRN (22:05)
[2018-09-05] MEDS ORDERED: DILAUDID IV PRN ×2 (22:05)
[2018-09-05] MEDS ORDERED: PHENERGAN PR PRN (22:05)
[2018-09-05] MEDS ORDERED: NARCAN 0.4 MG/1 ML IV PRN (22:05)
[2018-09-05] MEDS ORDERED: PHENERGAN PO PRN (22:05)
[2018-09-05] MEDS ORDERED: KETALAR ONE (22:16)
[2018-09-05] MEDS ORDERED: VERSED ONE (22:23)
[2018-09-05] MEDS ORDERED: METHERGINE IM ONE ×2 (22:24)
[2018-09-05] MEDS ORDERED: TORADOL ONE (22:52)
[2018-09-05] MEDS ORDERED: DILAUDID ONE (22:52)
[2018-09-05] MEDS ORDERED: SODIUM CHLORIDE FLUSH SYRINGE 10 ML IV PRN (23:00)
--- NOTE | 2018-09-05 23:30 | Procedure Note ---
OB Delivery Note - Delivery Date of Delivery: 09/05/18 Surgeon: CEZAR ON Estimated blood loss: 1000cc - Section Preop diagnosis: arrest of dilation Postop diagnosis: same section procedure: section, primary low transverse Disposition: PACU Complications: uterine atony - A at 1 minute: 7 at 5 minutes: 8 Gender: Male (4019g (8 lb 13.7 oz) @ 2220 pm)
--- NOTE | 2018-09-05 23:31 | Operative Report ---
Operative Report Operative Report: Date of procedure: September 05, 2018 Preoperative diagnosis: 1) IUP at 39w4d 2) Arrest of Dilation 3) Obesity 4) A dvanced Maternal Age 5) Polyhydramnios Postoperative diagnosis: Same 6) Uterine Atony Procedure: Primary low transverse section Surgeon: Nicole Vogt M.D. Anesthesia: Regional Findings: 1) Viable male , Apgars 7 and 8, weight 4019g, (8 lb 13.7 oz) in cephalic presentation 2) Normal-appearing uterus ovaries and tubes 3) Copious amount of amniotic fluid Estimated blood loss: 1000 mL IV fluids:1500 mL Urine output: 200 mL, clear at the end of the procedure Drains: Gray to gravity Specimens: Placenta to pathology Complications: None. Counts correct x 3 Medications: Methergine 0.2 mg IM Disposition: Stable to PACU Indication for procedure: Pt is a 38 year old at 39w4d who presents in active labor with arrest of dilation at 6.5 cm despite adequate contractility. The decision was made to proceed with section. Operation in detail: After the risks, benefits, alternatives and complications were explained to the patient she gave informed consent for the procedure. She was subsequently taken to the operating room where regional anesthesia was noted to be adequate. She was subsequently placed in the dorsal supine position with leftward tilt and prepped and draped in a normal sterile fashion. heart tones were noted to be in the 135s prior to incision. A timeout was performed. A Pfannenstiel skin incision was made with the knife and carried down to the layer of the fascia with the Bovie. The fascia was incised in the midline and the fascial incision was extended bilaterally with the Bovie. Attention was then turned to the superior aspect of the incision which was grasped with two Kochers, tented up, and dissected off the rectus muscles. Attention was then turned to the inferior aspect of the incision which was grasped with two Kochers, tented up and dissected off the rectus muscles. The rectus muscles were then in the midline and partially transected for adequate visualization. The peritoneum was then entered bluntly. The peritoneal incision was extended with good visualization of the bladder. The peritoneal incision was then stretched. An Kasi self-retaining retractor was placed for visualization. The bladder blade was placed. The vesicouterine peritoneum was grasped with smooth pickups and incised with Metzenbaum scissors. Metzenbaum scissors were used to extend the incision bilaterally. The bladder flap was then created digitally and the bladder blade was replaced. A transverse incision was made in the lower uterine segment with a knife and extended bilaterally with the bandage scissors. Upon entry into the uterine cavity there was egress of copious amounts of amniotic fluid. The head was delivered without difficulty followed by shoulders and body. was bulb suctioned at delivery. The cord was clamped and cut and the was handed to NICU staff in attendance. Cord blood was collected. The placenta was then delivered manually. The uterus was then exteriorized and cleared of all clots and debris. The uterus was noted to be somewhat atonic despite Pitocin administration. The patient was therefore given Methergine 0.2 mg IM. Uterine tone improved significantly. The hysterotomy was then reapproximated with 0 Vicryl in a running locked fashion. 2-0 Vicryl was used in a [id number] fashion to achieve hemostasis. The hysterotomy was inspected and hemostasis was noted. The Kasi self-retaining retractor was removed. The gutters were irrigated and cleared of all clots and debris. The hysterotomy was again inspected and noted to be hemostatic. Surgicel was placed over the hysterotomy. The peritoneum was reapproximated with 2-0 Vicryl in a running fashion incorporating the rectus muscles. The cut surface of the rectus muscles covered with Surgicel. The fascia was reapproximated with 0 Vicryl in a running fashion. Subcutaneous tissue was reapproximated with 3-0 Vicryl in a running fashion. The skin was reapproximated with 4-0 Vicryl in a subcuticular fashion. The incision was then covered with steri strips and a pressure dressing. The procedure was then ended. The patient tolerated the procedure well and was taken to the PACU in stable condition. All instrument, lap, and needle counts were correct 3.
--- NOTE | 2018-09-05 23:39 | Post Anesthesia Evaluation ---
- Post Anesthesia Evaluation Patient Participated: Yes Airway Patent: Yes Stable Respiratory Function: Yes Nausea/Vomiting: No Temp > 96.8F: Yes Pain Manageable: Yes Adequeate Hydration: Yes Anesthesia Complications: No Block Receding Appropriately: Yes Patient on Ventilator: No
[2018-09-06] MEDS ORDERED: SODIUM CHLORIDE FLUSH SYRINGE 10 ML IV PRN (02:04)
[2018-09-06] MEDS ORDERED: TUCKS PAD TP PRN (02:04)
[2018-09-06] MEDS ORDERED: MYLICON PO PRN (02:04)
[2018-09-06] MEDS ORDERED: NARCAN 0.4 MG/1 ML IV PRN (02:04)
[2018-09-06] MEDS ORDERED: LANSINOH TP PRN (02:04)
[2018-09-06] MEDS ORDERED: MORPHINE IV PRN ×2 (02:04)
[2018-09-06] MEDS ORDERED: PITOCin/NS 20 UNIT/1000ML DRIP 20 UNITS/1,000 ML BAG IV SCH (02:04)
[2018-09-06] MEDS ORDERED: ZOFRAN IV PRN (02:04)
[2018-09-06] MEDS ORDERED: D5LR 1,000 ML IV SCH (02:04)
[2018-09-06 05:29] LABS: Hematocrit 24.8 % (30.3-42.9); Hemoglobin 8.2 gm/dl (10.1-14.3)
[2018-09-06] MEDS: TORADOL IV SCH ×2 (06:13→14:30)
[2018-09-06] MEDS: ANCEF/NS 1 GM/50 ML 1 GM/50 ML BAG IV SCH ×2 (06:15→14:30)
--- NOTE | 2018-09-06 08:30 | Progress Note ---
Assessment and Plan A: POD1 s/p primary c/s Anemia due to blood loss P: Continue current care Iron supplementation Anticipate discharge to home on POD3 Reviewed breast feeding education Subjective - Subjective Date of service: 09/06/18 Principal diagnosis: Post-op Interval history: Pt is a 38 yo at 10 hours post-op s/p primary for arrest of dilation. She still has a gonzales catheter in place, and SCDs. Patient reports: appetite normal, pain well controlled Carson: doing well, bottle feeding (Perceived lack of milk supply, pt desires to breast feed. Reports infant had low blood glucose and received formula.) Objective - Vital Signs Latest vital signs: Vital Signs Temp Pulse Resp BP Pulse Ox 09/06/18 06:13 18 09/06/18 04:26 98.7 F 18 99/56 09/06/18 04:05 66 09/06/18 00:35 86 24 108/53 100 09/06/18 00:30 90 18 97/64 100 09/06/18 00:15 89 17 119/51 99 09/06/18 00:00 98.9 F 88 18 111/59 98 09/05/18 23:45 91 H 20 114/63 97 09/05/18 23:40 94 H 22 112/66 100 09/05/18 23:34 98.4 F 95 H 21 128/55 100 09/05/18 21:10 99 H 131/76 09/05/18 21:05 131 H 98 09/05/18 21:00 97 H 100 09/05/18 20:55 98 H 100 09/05/18 20:50 91 H 99 09/05/18 20:45 99 H 100 09/05/18 20:41 86 109/59 09/05/18 20:40 90 100 09/05/18 20:35 91 H 100 09/05/18 20:30 93 H 100 09/05/18 20:25 93 H 100 09/05/18 20:20 95 H 100 09/05/18 20:15 101 H 100 09/05/18 20:11 95 H 137/68 09/05/18 20:10 103 H 100 09/05/18 20:05 101 H 100 09/05/18 20:00 99 H 100 09/05/18 19:55 82 100 09/05/18 19:50 85 100 09/05/18 19:45 89 100 09/05/18 19:40 82 124/78 100 09/05/18 19:35 88 100 09/05/18 19:30 100 H 100 09/05/18 19:25 95 H 100 09/05/18 19:20 89 100 09/05/18 19:15 86 100 09/05/18 19:10 96 H 128/83 100 09/05/18 19:05 83 100 09/05/18 19:00 84 100 09/05/18 18:55 89 100 09/05/18 18:50 87 100 09/05/18 18:45 93 H 100 09/05/18 18:42 87 127/73 09/05/18 18:40 99 H 100 09/05/18 18:35 95 H 100 09/05/18 18:30 85 100 09/05/18 18:26 97.7 F 09/05/18 18:25 93 H 100 09/05/18 18:20 104 H 100 09/05/18 18:15 92 H 100 09/05/18 18:11 108 H 139/82 09/05/18 18:10 102 H 100 09/05/18 18:05 94 H 100 09/05/18 18:00 96 H 100 09/05/18 17:55 83 100 09/05/18 17:50 90 100 09/05/18 17:45 94 H 100 09/05/18 17:40 74 116/63 100 09/05/18 17:35 64 100 09/05/18 17:30 77 100 09/05/18 17:25 87 100 09/05/18 17:20 86 100 09/05/18 17:15 88 100 09/05/18 17:11 61 120/77 09/05/18 17:10 69 100 09/05/18 17:05 75 100 09/05/18 17:00 83 99 09/05/18 16:55 73 100 09/05/18 16:50 62 100 09/05/18 16:45 72 99 09/05/18 16:42 83 111/65 09/05/18 16:40 76 99 09/05/18 16:35 79 100 09/05/18 16:30 70 100 09/05/18 16:25 93 H 100 09/05/18 16:20 73 100 09/05/18 16:15 93 H 100 09/05/18 16:11 70 114/68 09/05/18 16:10 74 100 09/05/18 16:05 103 H 100 09/05/18 16:00 96 H 100 09/05/18 15:55 105 H 99 09/05/18 15:50 91 H 100 09/05/18 15:45 92 H 96 09/05/18 15:40 98 H 105/59 97 09/05/18 15:38 85 114/58 09/05/18 15:36 90 112/58 09/05/18 15:35 80 97 09/05/18 15:34 94 H 101/51 09/05/18 15:32 108 H 88/52 09/05/18 15:30 79 109/60 98 09/05/18 15:28 84 110/62 09/05/18 15:26 90 113/63 09/05/18 15:25 89 98 09/05/18 15:24 91 H 114/63 09/05/18 15:22 94 H 111/60 09/05/18 15:20 93 H 121/61 99 09/05/18 15:18 91 H 125/61 09/05/18 15:16 102 H 122/60 09/05/18 15:15 93 H 99 09/05/18 15:14 113 H 105/56 09/05/18 15:12 100 H 118/65 09/05/18 15:10 101 H 121/65 99 09/05/18 15:08 109 H 135/77 09/05/18 15:06 114 H 131/80 09/05/18 15:05 116 H 100 09/05/18 15:04 98.0 F 117 H 20 132/77 09/05/18 15:02 115 H 129/72 09/05/18 15:00 109 H 131/70 100 09/05/18 14:58 100 H 136/72 09/05/18 14:55 108 H 99 09/05/18 14:46 95 H 124/66 09/05/18 14:16 84 112/63 09/05/18 13:58 81 118/65 09/05/18 12:43 97.8 F 18 09/05/18 12:21 85 100 09/05/18 12:17 65 135/76 09/05/18 12:16 72 99 09/05/18 12:11 79 98 09/05/18 12:06 72 98 09/05/18 12:01 80 98 09/05/18 11:56 91 H 98 09/05/18 11:51 72 99 09/05/18 11:46 91 H 127/69 99 09/05/18 11:44 73 89 09/05/18 11:41 74 100 09/05/18 11:36 78 99 09/05/18 11:31 67 99 09/05/18 11:26 87 98 09/05/18 11:21 70 95 09/05/18 11:16 83 119/74 98 09/05/18 11:11 72 97 09/05/18 11:06 68 97 09/05/18 11:01 69 97 09/05/18 10:56 78 96 09/05/18 10:51 75 98 09/05/18 10:46 72 121/70 97 09/05/18 10:41 70 96 09/05/18 10:36 69 96 09/05/18 10:31 70 96 09/05/18 10:26 76 96 09/05/18 10:17 72 114/67 09/05/18 09:58 18 09/05/18 09:46 70 129/71 09/05/18 08:47 82 127/70 Intake and Output 09/05/18 09/06/18 09/06/18 23:59 07:59 15:59 Intake Total 2368.583 Output Total 300 600 Balance 2068.583 -600 Intake: IV 2368.583 Lactated Ringers 1,000 ml 339.583 @ 125 mls/hr IV DIRECT ARTHUR Rx#:[id number] PITOCin/NS 30 UNIT/500ML 29.0 30 units In 500 ml @ 1 MILLIUNITS/MIN 1 mls/hr IV TITR ARTHUR Rx#:[id number] Output: Urine 300 600 Indwelling 100 Indwelling Catheter 600 Other: Total, Output Amount 600 - Exam Cardiovascular: Present: Regular rate, Normal S1, Normal S2, No murmurs Lungs: Present: Clear to auscultation, Normal air movement Abdomen: Present: normal appearance, soft, tenderness, normal bowel sounds Uterus: Present: normal, firm, fundal height at umbilicus Incision: Present: normal, dry, intact - Labs Labs: Abnormal lab results 09/06/18 Range/Units 04:59 Hgb 8.2 L D (10.1-14.3) gm/dl Hct 24.8 L D (30.3-42.9) %
[2018-09-06] MEDS ORDERED: MILK OF MAGNESIA PO ONE (09:30)
[2018-09-06 12:34] LABS: Hematocrit 24.8 % (30.3-42.9); Hemoglobin 8.2 gm/dl (10.1-14.3)
[2018-09-06] MEDS ORDERED: MILK OF MAGNESIA PO PRN ×2 (18:00→20:35)
[2018-09-06] MEDS: IBUPROFEN PO PRN (22:30)
[2018-09-06] MEDS ORDERED: M-M-R II VACCINE SUB-Q ONE (23:38)
[2018-09-07] MEDS: FEOSOL PO SCH ×3 (00:20→21:49)
[2018-09-07] MEDS ORDERED: BOOSTRIX IM ONE (06:00)
[2018-09-07] MEDS: IBUPROFEN PO PRN (06:51)
--- NOTE | 2018-09-07 08:20 | Progress Note ---
Assessment and Plan A: POD2 s/p primary c/s Anemia secondary to blood loss P: Continue current care Iron supplementation Anticipate discharge to home on POD3 Subjective - Subjective Date of service: 09/07/18 Principal diagnosis: Post-op Interval history: Pt is a 38 yo at POD2 s/p primary c/s for arrest of dilation. Patient reports: appetite normal, voiding normally, pain well controlled, bowel movement, ambulating normally : doing well, nursing well, bottle feeding Objective - Vital Signs Latest vital signs: Vital Signs Temp Pulse Resp BP BP Pulse Ox 09/07/18 01:45 97.8 F 80 18 97/52 98 09/06/18 22:01 98.2 F 100 H 18 115/63 100 09/06/18 16:24 98.5 F 98 H 18 109/65 09/06/18 13:59 98.4 F 92 H 18 108/65 Intake and Output 09/06/18 09/07/18 09/07/18 23:59 07:59 15:59 Intake Total 840 240 Output Total 800 Balance 40 240 Intake: Oral 480 Intake, Free Water 360 240 Output: Urine 800 Indwelling Catheter 800 Other: Total, Intake Amount 480 Total, Output Amount 800 # Voids Void 2 2 # Bowel Movements 1 - Exam Cardiovascular: Present: Regular rate, Normal S1, Normal S2, No murmurs Lungs: Present: Clear to auscultation, Normal air movement Abdomen: Present: normal appearance, soft, normal bowel sounds Uterus: Present: normal, firm, fundal height below umbilicus Extremities: Present: normal Incision: Present: normal, dry, intact - Labs Labs: Abnormal lab results 09/06/18 Range/Units 11:45 Hgb 8.2 L (10.1-14.3) gm/dl Hct 24.8 L (30.3-42.9) %
--- NOTE | 2018-09-07 08:22 | Discharge Summary ---
Providers - Providers Date of Admission: 09/04/18 23:15 Date of discharge: 09/08/18 Attending physician: CEZAR NO Primary care physician: CEZAR NO Hospitalization Reason for admission: active labor Delivery: Procedure: primary low transverse (for arrest of dilation) Episiotomy: none Incision: normal, dry, intact Other procedures: none complications: none Discharge diagnosis: IUP at term delivered baby: male Condition at discharge: Good Disposition: DC-01 TO HOME OR SELFCARE Plan - Discharge Medications Prescriptions: Docusate Sodium [Colace] 100 mg PO BID PRN #60 capsule PRN Reason: Constipation Ferrous Sulfate [Feosol 325 MG tab] 325 mg PO BID #60 tablet Ibuprofen [Motrin] 800 mg PO Q8HR PRN #30 tablet PRN Reason: Pain, Moderate (4-6) oxyCODONE /ACETAMINOPHEN [Percocet 5/325] 1 tab PO Q6HR PRN #40 tablet PRN Reason: Pain - Provider Discharge Summary Activity: routine, no sex for 6 weeks, no heavy lifting 4 weeks, no strenuous exercise Diet: routine Instructions: routine Additional instructions: [] Smoking cessation referral if applicable(refer to patient education folder for contact #) [] Refer to [facility]'s [facility] Booklet Call your doctor immediately for: * Fever > 100.5 * Heavy vaginal bleeding ( >1 pad per hour) * Severe persistent headache * Shortness of breath * Reddened, hot, painful area to leg or breast * Drainage or odor from incision. * Keep incision clean and dry at all times and follow doctor's instructions regarding bathing/showering - Follow up plan Follow up: CEZAR NO MD [Primary Care Provider] - 14 Days
[2018-09-07] MEDS: PERCOCET 5/325 PO PRN (17:28)
[2018-09-08] MEDS: PERCOCET 5/325 PO PRN ×2 (06:27→10:59)
[2018-09-08] MEDS: FEOSOL PO SCH (10:33)
[2018-09-08 13:56] VITALS: BP 116/75
== END 2018-09-08 13:30 | disposition home or self-care (01) | DRG 765 ==
LOC: TRG 20:29 → LD 23:15 → OB 09-06 01:15
PROVIDERS: ADMIT Obstetrics & Gynecology; ATTEND Obstetrics & Gynecology
PROC: 10D00Z1 Extraction of Products of Conception, Low, Open Approach (ICD-10-PCS; principal; 2018-09-05)
PROC: 10H07YZ Insertion of Other Device into Products of Conception, Via Natural or Artificial Opening (ICD-10-PCS; 2018-09-05)
PROC: 10907ZC Drainage of Amniotic Fluid, Therapeutic from Products of Conception, Via Natural or Artificial Opening (ICD-10-PCS; 2018-09-05)
PROC: 3E0234Z Introduction of Serum, Toxoid and Vaccine into Muscle, Percutaneous Approach (ICD-10-PCS; 2018-09-06)
DX: O77.0 Labor and delivery complicated by meconium in amniotic fluid (principal); O40.3XX0 Polyhydramnios, third trimester, not applicable or unspecified; O99.52 Diseases of the respiratory system complicating childbirth; J45.909 Unspecified asthma, uncomplicated; O62.0 Primary inadequate contractions; O99.214 Obesity complicating childbirth; E66.9 Obesity, unspecified; O62.2 Other uterine inertia; O99.02 Anemia complicating childbirth; D64.9 Anemia, unspecified; O42.92 Full-term premature rupture of membranes, unspecified as to length of time between rupture and onset of labor; Z80.9 Family history of malignant neoplasm, unspecified; Z37.0 Single live birth; Z3A.39 39 weeks gestation of pregnancy; Z79.899 Other long term (current) drug therapy; Z23 Encounter for immunization
CPT/HCPCS: 36415; 76815; 85014; 85018; 85027; 86592; 86850; 86900; 86901; 88307; 90715; G0378; J0290; J0595; J0690; J1170; J1885; J2210; J2250; J2370; J2405; J2590; J2704; J2765; J3010; J7040; J7120; J7121

== ENCOUNTER 2020-03-26 09:27 | Outpatient (CLI) | payer MEDICAID ==
[2020-03-26] MEDS ORDERED: LACTATED RINGERS 500 ML IV SCH (10:00)
[2020-03-26 10:17] LABS: Bilirubin,Urine NEG (Negative); Blood,Urine NEG (Negative); Color,Urine Straw (Yellow); Protein,Urine <15 mg/dL mg/dL (Negative); RBC,Urine < 1.0 /HPF (0.0-6.0); Urobilinogen,Urine < 2.0 mg/dL (<2.0); WBC,Urine < 1.0 /HPF (0.0-6.0)
[2020-03-26 10:53] VITALS: BP 121/71
[2020-03-26] MEDS ORDERED: BETAMET ACET/BETAMET NA PH 6 MG/ML INJ 5 ML MDV IM NR (13:21)
== END 2020-03-26 14:00 | disposition home or self-care (01) ==
LOC: TRG 09:27 → APU 09:28 → TRG 14:00
PROVIDERS: ATTEND Obstetrics & Gynecology
DX: O47.03 False labor before 37 completed weeks of gestation, third trimester (principal); Z3A.32 32 weeks gestation of pregnancy
CPT/HCPCS: 59025; 81001; 96360; 96361; 96372; J0702; J7120

== ENCOUNTER 2020-03-27 11:32 | Outpatient (CLI) | payer MEDICAID ==
[2020-03-27] MEDS ORDERED: LACTATED RINGERS 500 ML IV ONE (11:49)
[2020-03-27] MEDS ORDERED: TERBUTALINE 1 MG/1 ML INJ SUB-Q SCH (12:00)
[2020-03-27 12:13] VITALS: BP 135/68
[2020-03-27] MEDS ORDERED: BETAMET ACET/BETAMET NA PH 6 MG/ML INJ 5 ML MDV IM ONE (13:30)
== END 2020-03-27 13:46 | disposition home or self-care (01) ==
LOC: TRG 11:32 → APU 11:34 → TRG 13:46
PROVIDERS: ATTEND Obstetrics & Gynecology
DX: O62.9 Abnormality of forces of labor, unspecified (principal); O09.523 Supervision of elderly multigravida, third trimester; Z3A.32 32 weeks gestation of pregnancy
CPT/HCPCS: 59025; 96372; J0702; J3105; J7120; 96360

== ENCOUNTER 2020-05-01 01:58 | Outpatient (CLI) | payer MEDICAID ==
[2020-05-01 02:46] VITALS: BP 118/72
[2020-05-01] MEDS ORDERED: LACTATED RINGERS 1,000 ML ONE (02:57)
[2020-05-01] MEDS ORDERED: LACTATED RINGERS 1,000 ML IV ONE (03:32)
[2020-05-01 04:45] LABS: Bilirubin,Urine NEG (Negative); Blood,Urine NEG (Negative); Color,Urine Yellow (Yellow); Protein,Urine <15 mg/dL mg/dL (Negative); Urobilinogen,Urine < 2.0 mg/dL (<2.0)
[2020-05-01] MEDS ORDERED: TERBUTALINE 1 MG/1 ML INJ SUB-Q ONE (04:54)
== END 2020-05-01 06:18 | disposition home or self-care (01) ==
LOC: TRG 01:58 → APU 02:19 → TRG 06:18
PROVIDERS: ATTEND Obstetrics & Gynecology
DX: O62.9 Abnormality of forces of labor, unspecified (principal); O09.523 Supervision of elderly multigravida, third trimester; Z3A.37 37 weeks gestation of pregnancy
CPT/HCPCS: 59025; 81001; 96372; J3105; 96360